=== PATIENT | female | born 1940 | race Two or more races ===

== ENCOUNTER 2021-10-01 09:00 | Outpatient (CLI) | payer OTHER | END 2021-10-01 09:15 | disposition home or self-care (01) | LOC: PPH VACUNA 09:00 | PROVIDERS: ATTEND Emergency Medicine Pediatric Emergency Medicine | DX: Z23 Encounter for immunization (principal) ==

== ENCOUNTER 2024-04-14 00:12 | Emergency (ER) | payer OTHER ==
[~2024-04-14] VITALS: Ht 177.8 cm; Wt 64.4 kg
[2024-04-14 01:42] LABS: HEMATOCRIT 37.4 % (36.0-45.00); HEMOGLOBIN 12.6 g/dL (12.0-15.00); MEAN CELL VOLUME 87.9 fL (80.00-100.00); MEAN CORPUSCULAR HEMOGLOBIN 29.5 pg (27.00-32.0); MEAN CORPUSCULAR HGB CONC 33.6 g/dl (32.0-36.0); PLATELET COUNT 167 K/uL (150-450); RED BLOOD COUNT 4.26 M/uL (4.00-6.00); RED CELL DISTRIBUTION WIDTH 15.4 % (11.5-14.5)
[2024-04-14 02:27] LABS: CALCIUM 8.8 mg/dL (8.5-10.1); CREATININE SERUM 0.92 mg/dL (0.55-1.02); GFR 58.44; POTASSIUM 3.73 mEq/L (3.5-5.1)
[2024-04-14] MEDS ORDERED: CENTANY30 GM TOP (04:20)
[2024-04-14] MEDS ORDERED: CEPHALEXIN500 MG PO (04:20)
== END 2024-04-14 05:05 ==
LOC: ER 00:13
PROVIDERS: General Practice
DX: S50.812A Abrasion of left forearm, initial encounter (principal); W19.XXXA Unspecified fall, initial encounter; Y93.89 Activity, other specified; Y92.098 Other place in other non-institutional residence as the place of occurrence of the external cause; Y99.8 Other external cause status; S49.92XA Unspecified injury of left shoulder and upper arm, initial encounter; R55 Syncope and collapse; S09.90XA Unspecified injury of head, initial encounter